=== PATIENT | male | born 1970 | race African-American/Black ===

== ENCOUNTER 2022-06-19 18:44 | Inpatient (IN) | payer OTHER ==
[2022-06-19] MEDS ORDERED: Ondansetron PF 4 MG/2 ML Vial ONE (20:01)
[2022-06-19] MEDS ORDERED: HYDROmorphone 0.5 MG/0.5 ML SYRINGE ONE ×4 (20:01→23:21)
[2022-06-19 20:07] LABS: ALT (SGPT) 16 U/L (8-55); AST (SGOT) 17 U/L (5-34); Albumin 3.6 g/dL (3.5-5.0); Alkaline Phosphatase 103 U/L (40-110); Anion Gap 16 mmol/L (10-20); BUN (Urea Nitrogen) 31 mg/dL (8.4-25.7); Bilirubin, Total 0.3 mg/dL (0.2-1.2); Calc. Creatinine Clearance 0 mL/min (70-130); Calcium 9.3 mg/dL (7.8-10.44); Carbon Dioxide 24 mmol/L (22-29); Chloride 100 mmol/L (98-107); Estimated GFR 23; Globulin 3.8 g/dL (2.4-3.5); Glucose 101 mg/dL (70-105); Potassium 3.9 mmol/L (3.5-5.1); Protein, Total 7.4 g/dL (6.0-8.3); Sodium 136 mmol/L (136-145)
[2022-06-19 20:12] LABS: #Basophils 0.1 10x3/uL (0.0-0.2); #Eosinphils 0.1 10x3/uL (0.0-0.5); #Monocytes 0.9 10x3/uL (0.0-1.1); #Neutrophils 8.7 10x3/uL (1.5-8.4); %Basophils 0.5 % (0.0-2.0); %Eosinophils 1.1 % (0.0-6.0); %Monocytes 7.6 % (0.0-10.0); %Neutrophils 76.4 % (40.0-75.0); Hemoglobin 7.9 g/dL (13.5-17.5); Mean Corpuscular HGB CONC 32.8 g/dL (32.0-36.0); Mean Corpuscular Volume 94.5 fl (81.2-95.1); Platelet Count 233 10x3/uL (150-450); RBC Distribution Width 15.8 % (11.5-14.5); Red Blood Cell (RBC) Count 2.55 10x6/uL (4.32-5.72); White Blood Cell (WBC) Count 11.4 10x3/uL (3.5-10.5)
[2022-06-19 20:15] LABS: Bilirubin Neg (Negative); Blood, Urine 150 (Negative); Clarity Clear (Clear); Glucose, Urine (Dipstick) Normal (Negative); Ketone, Urine Negative (Negative); Leukocyte 500 (Negative); Nitrite Negative (Negative); Protein, Urine (Dipstick) 30 mg/dl (Neg-Trace); Specific Gravity, Urine 1.015 (1.005-1.030); Urobilinogen Normal mg/dL (Less than 2)
[2022-06-19 20:25] LABS: Bacteria/HPF 1+ HPF (None Seen); Squamous Epithelial 0-3 HPF (0-3); Yeast-Budding 1+ HPF (None Seen)
[2022-06-19 20:27] LABS: Yeast-Hyphae 1+ HPF (None Seen)
[2022-06-19] MEDS ORDERED: Fentanyl 100 MCG/2 ML VIAL ONE (21:56)
[2022-06-20] MEDS ORDERED: HYDROmorphone 0.5 MG/0.5 ML SYRINGE ONE (00:05)
[2022-06-20] MEDS ORDERED: cefTRIAXone (ROCEPHIN) 2 GM VIAL ONE (00:56)
[2022-06-20] MEDS ORDERED: Acetaminophen 325 MG TAB PO PRN (03:26)
[2022-06-20] MEDS: Lactated Ringer's 1,000 ML IV SCH ×2 (03:49→14:39)
[2022-06-20] MEDS ORDERED: Morphine 2 MG/ML VIAL SLOW IVP PRN (04:21)
[2022-06-20 07:15] VITALS: BMI 35.4
[2022-06-20 08:13] LABS: #Eosinphils 0.2 10x3/uL (0.0-0.5); #Monocytes 0.9 10x3/uL (0.0-1.1); #Neutrophils 7.9 10x3/uL (1.5-8.4); %Basophils 0.4 % (0.0-2.0); %Eosinophils 1.6 % (0.0-6.0); %Lymphocytes 13.5 % (18.0-47.0); %Monocytes 8.4 % (0.0-10.0); %Neutrophils 75.5 % (40.0-75.0); Hemoglobin 8.1 g/dL (13.5-17.5); Mean Corpuscular HGB CONC 31.5 g/dL (32.0-36.0); Mean Corpuscular Hemoglobin 30.3 pg (27.0-33.0); Mean Corpuscular Volume 96.3 fl (81.2-95.1); Mean Platelet Volume 9.7 fl (7.4-10.4); Platelet Count 252 10x3/uL (150-450); RBC Distribution Width 15.8 % (11.5-14.5); Red Blood Cell (RBC) Count 2.67 10x6/uL (4.32-5.72); White Blood Cell (WBC) Count 10.4 10x3/uL (3.5-10.5)
[2022-06-20] MEDS: METHadone HCl 10 MG TAB PO SCH ×3 (08:37→23:12)
[2022-06-20 08:51] LABS: Anion Gap 13 mmol/L (10-20); BUN (Urea Nitrogen) 31 mg/dL (8.4-25.7); Calc. Creatinine Clearance 41 mL/min (70-130); Calcium 9.5 mg/dL (7.8-10.44); Carbon Dioxide 29 mmol/L (22-29); Chloride 102 mmol/L (98-107); Estimated GFR 21; Glucose 99 mg/dL (70-105); Magnesium 2.3 mg/dL (1.6-2.6); Potassium 4.4 mmol/L (3.5-5.1); Sodium 140 mmol/L (136-145)
[2022-06-20] MEDS ORDERED: Escitalopram Oxalate 10 mg Tablet PO SCH (09:00)
[2022-06-20] MEDS ORDERED: HYDROmorphone 2 MG TAB ONE (14:34)
[2022-06-20] MEDS: HYDROmorphone 2 MG TAB PO PRN ×3 (14:36→20:18)
[2022-06-20] MEDS: Escitalopram Oxalate 10 mg Tablet PO SCH (20:18)
[2022-06-20] MEDS ORDERED: Sodium Chloride 0.9% 100 ML ONE (23:53)
[2022-06-21] MEDS ORDERED: cefTRIAXone\\ROCEPHIN 2 GM in Sodium Chloride 0.9% 100 ML IVPB SCH (01:00)
[2022-06-21] MEDS: Lactated Ringer's 1,000 ML IV SCH ×3 (01:03→20:17)
[2022-06-21] MEDS: HYDROmorphone 2 MG TAB PO PRN ×6 (02:42→20:45)
[2022-06-21 04:12] LABS: #Eosinphils 0.2 10x3/uL (0.0-0.5); #Monocytes 0.8 10x3/uL (0.0-1.1); #Neutrophils 7.9 10x3/uL (1.5-8.4); %Basophils 0.3 % (0.0-2.0); %Eosinophils 1.5 % (0.0-6.0); %Lymphocytes 14.8 % (18.0-47.0); %Monocytes 7.4 % (0.0-10.0); %Neutrophils 75.5 % (40.0-75.0); Hemoglobin 8.5 g/dL (13.5-17.5); Mean Corpuscular HGB CONC 30.9 g/dL (32.0-36.0); Mean Corpuscular Hemoglobin 30.2 pg (27.0-33.0); Mean Corpuscular Volume 97.9 fl (81.2-95.1); Mean Platelet Volume 10.1 fl (7.4-10.4); Platelet Count 235 10x3/uL (150-450); RBC Distribution Width 15.7 % (11.5-14.5); Red Blood Cell (RBC) Count 2.81 10x6/uL (4.32-5.72); White Blood Cell (WBC) Count 10.5 10x3/uL (3.5-10.5)
[2022-06-21 04:18] LABS: Anion Gap 16 mmol/L (10-20); BUN (Urea Nitrogen) 28 mg/dL (8.4-25.7); Calc. Creatinine Clearance 42 mL/min (70-130); Calcium 9.5 mg/dL (7.8-10.44); Carbon Dioxide 24 mmol/L (22-29); Chloride 102 mmol/L (98-107); Estimated GFR 22; Glucose 77 mg/dL (70-105); Sodium 138 mmol/L (136-145)
[2022-06-21] MEDS: Morphine 4 MG/ML VIAL SLOW IVP PRN (05:24)
[2022-06-21] MEDS: METHadone HCl 10 MG TAB PO SCH ×3 (08:19→23:41)
[2022-06-21] MEDS: Escitalopram Oxalate 20 mg Tablet PO SCH (08:20)
[2022-06-21] MEDS ORDERED: VANCOMYCIN 1.75 GM/350 ML BAG 1.75 GM in Premix Bag 1 BAG IVPB SCH (09:00)
[2022-06-21] MEDS: Cefepime 1 GM in Sodium Chloride 0.9% 100 ML IVPB SCH ×2 (09:13→20:17)
[2022-06-21] MEDS: Escitalopram Oxalate 10 mg Tablet PO SCH (20:18)
[2022-06-22] MEDS: Morphine 4 MG/ML VIAL SLOW IVP PRN ×3 (02:11→12:22)
[2022-06-22 03:59] LABS: #Basophils 0.1 10x3/uL (0.0-0.2); #Eosinphils 0.2 10x3/uL (0.0-0.5); #Monocytes 0.7 10x3/uL (0.0-1.1); #Neutrophils 8.5 10x3/uL (1.5-8.4); %Basophils 0.5 % (0.0-2.0); %Eosinophils 1.8 % (0.0-6.0); %Lymphocytes 12.8 % (18.0-47.0); %Monocytes 6.2 % (0.0-10.0); %Neutrophils 78.2 % (40.0-75.0); Hemoglobin 8.4 g/dL (13.5-17.5); Mean Corpuscular HGB CONC 31.6 g/dL (32.0-36.0); Mean Corpuscular Hemoglobin 30.8 pg (27.0-33.0); Mean Corpuscular Volume 97.4 fl (81.2-95.1); Mean Platelet Volume 9.5 fl (7.4-10.4); Platelet Count 239 10x3/uL (150-450); RBC Distribution Width 15.8 % (11.5-14.5); Red Blood Cell (RBC) Count 2.73 10x6/uL (4.32-5.72); White Blood Cell (WBC) Count 10.9 10x3/uL (3.5-10.5)
[2022-06-22 04:21] LABS: ALT (SGPT) 14 U/L (8-55); AST (SGOT) 15 U/L (5-34); Albumin 3.7 g/dL (3.5-5.0); Alkaline Phosphatase 114 U/L (40-110); Anion Gap 17 mmol/L (10-20); BUN (Urea Nitrogen) 30 mg/dL (8.4-25.7); Bilirubin, Total 0.3 mg/dL (0.2-1.2); Calc. Creatinine Clearance 43 mL/min (70-130); Calcium 9.5 mg/dL (7.8-10.44); Carbon Dioxide 24 mmol/L (22-29); Chloride 103 mmol/L (98-107); Estimated GFR 23; Globulin 4.1 g/dL (2.4-3.5); Glucose 97 mg/dL (70-105); Protein, Total 7.8 g/dL (6.0-8.3); Sodium 140 mmol/L (136-145)
[2022-06-22] MEDS: Lactated Ringer's 1,000 ML IV SCH (07:45)
[2022-06-22] MEDS: Cefepime 1 GM in Sodium Chloride 0.9% 100 ML IVPB SCH ×2 (08:22→22:23)
[2022-06-22] MEDS: Escitalopram Oxalate 20 mg Tablet PO SCH (08:25)
[2022-06-22] MEDS: METHadone HCl 10 MG TAB PO SCH ×2 (08:25→16:42)
[2022-06-22] MEDS ORDERED: Senokot S 8.6-50 MG TAB PO SCH (11:30)
[2022-06-22] MEDS ORDERED: Bisacodyl 5 MG TAB PO SCH (13:00)
[2022-06-22] MEDS ORDERED: Gabapentin 300 MG CAP PO SCH (13:00)
[2022-06-22] MEDS: HYDROmorphone 2 MG TAB PO PRN (13:16)
[2022-06-22] MEDS ORDERED: VANCOMYCIN 1.25 GM/250 ML BAG 1.25 GM in Premix Bag 1 BAG IVPB SCH (21:00)
[2022-06-22] MEDS: Escitalopram Oxalate 10 mg Tablet PO SCH (22:27)
[2022-06-22] MEDS: Gabapentin 300 MG CAP PO SCH (22:28)
[2022-06-22] MEDS: Senokot S 8.6-50 MG TAB PO SCH (22:28)
[2022-06-22] MEDS: Mirtazapine 15 MG Soltab PO SCH (22:28)
[2022-06-23] MEDS: METHadone HCl 10 MG TAB PO SCH ×3 (00:18→15:30)
[2022-06-23 04:17] LABS: #Eosinphils 0.2 10x3/uL (0.0-0.5); #Monocytes 0.7 10x3/uL (0.0-1.1); #Neutrophils 6.8 10x3/uL (1.5-8.4); %Basophils 0.4 % (0.0-2.0); %Eosinophils 1.8 % (0.0-6.0); %Monocytes 7.7 % (0.0-10.0); %Neutrophils 73.9 % (40.0-75.0); Hemoglobin 7.4 g/dL (13.5-17.5); Mean Corpuscular Hemoglobin 31.1 pg (27.0-33.0); Mean Corpuscular Volume 97.1 fl (81.2-95.1); Mean Platelet Volume 9.6 fl (7.4-10.4); Platelet Count 196 10x3/uL (150-450); RBC Distribution Width 15.7 % (11.5-14.5); Red Blood Cell (RBC) Count 2.38 10x6/uL (4.32-5.72); White Blood Cell (WBC) Count 9.3 10x3/uL (3.5-10.5)
[2022-06-23 04:33] LABS: ALT (SGPT) 10 U/L (8-55); AST (SGOT) 13 U/L (5-34); Albumin 3.4 g/dL (3.5-5.0); Alkaline Phosphatase 93 U/L (40-110); Anion Gap 16 mmol/L (10-20); BUN (Urea Nitrogen) 30 mg/dL (8.4-25.7); Bilirubin, Total 0.2 mg/dL (0.2-1.2); Calc. Creatinine Clearance 43 mL/min (70-130); Calcium 9.1 mg/dL (7.8-10.44); Carbon Dioxide 23 mmol/L (22-29); Chloride 104 mmol/L (98-107); Estimated GFR 23; Globulin 3.5 g/dL (2.4-3.5); Glucose 77 mg/dL (70-105); Potassium 3.9 mmol/L (3.5-5.1); Protein, Total 6.9 g/dL (6.0-8.3); Sodium 139 mmol/L (136-145)
[2022-06-23] MEDS: HYDROmorphone 2 MG TAB PO PRN ×3 (05:43→22:06)
[2022-06-23] MEDS: Cefepime 1 GM in Sodium Chloride 0.9% 100 ML IVPB SCH ×2 (08:17→21:54)
[2022-06-23] MEDS: Gabapentin 300 MG CAP PO SCH ×2 (08:32→22:05)
[2022-06-23] MEDS: Escitalopram Oxalate 20 mg Tablet PO SCH (08:33)
[2022-06-23] MEDS: Senokot S 8.6-50 MG TAB PO SCH ×2 (08:34→22:05)
[2022-06-23] MEDS: Polyethylene Glycol 3350 17 GM Packet PO SCH (08:36)
[2022-06-23] MEDS ORDERED: Escitalopram Oxalate 20 mg Tablet PO SCH (09:00)
[2022-06-23 10:10] LABS: Iron 51 ug/dL (65-175); Iron Binding Capacity, Total 249 mcg/dL (261-462)
[2022-06-23] MEDS ORDERED: Bisacodyl 5 MG TAB PO PRN (15:35)
[2022-06-23] MEDS ORDERED: Bisacodyl 5 MG TAB PO SCH (15:45)
[2022-06-23] MEDS: Morphine 4 MG/ML VIAL SLOW IVP PRN (16:36)
[2022-06-23] MEDS: Mirtazapine 15 MG Soltab PO SCH (22:05)
[2022-06-23] MEDS: Escitalopram Oxalate 10 mg Tablet PO SCH (22:05)
[2022-06-24] MEDS: METHadone HCl 10 MG TAB PO SCH ×3 (00:55→17:58)
[2022-06-24 05:21] LABS: #Basophils 0.1 10x3/uL (0.0-0.2); #Eosinphils 0.2 10x3/uL (0.0-0.5); #Monocytes 0.8 10x3/uL (0.0-1.1); #Neutrophils 8.2 10x3/uL (1.5-8.4); %Basophils 0.5 % (0.0-2.0); %Eosinophils 1.7 % (0.0-6.0); %Lymphocytes 14.6 % (18.0-47.0); %Monocytes 7.2 % (0.0-10.0); %Neutrophils 75.4 % (40.0-75.0); Hemoglobin 7.9 g/dL (13.5-17.5); Mean Corpuscular HGB CONC 31.3 g/dL (32.0-36.0); Mean Corpuscular Hemoglobin 30.4 pg (27.0-33.0); Mean Corpuscular Volume 96.9 fl (81.2-95.1); Mean Platelet Volume 9.7 fl (7.4-10.4); Platelet Count 238 10x3/uL (150-450); RBC Distribution Width 15.9 % (11.5-14.5); White Blood Cell (WBC) Count 10.8 10x3/uL (3.5-10.5)
[2022-06-24] MEDS: HYDROmorphone 2 MG TAB PO PRN (05:23)
[2022-06-24 05:36] LABS: ALT (SGPT) 11 U/L (8-55); AST (SGOT) 14 U/L (5-34); Albumin 3.8 g/dL (3.5-5.0); Alkaline Phosphatase 96 U/L (40-110); Anion Gap 16 mmol/L (10-20); BUN (Urea Nitrogen) 33 mg/dL (8.4-25.7); Bilirubin, Total 0.2 mg/dL (0.2-1.2); Calc. Creatinine Clearance 40 mL/min (70-130); Calcium 9.8 mg/dL (7.8-10.44); Carbon Dioxide 23 mmol/L (22-29); Chloride 105 mmol/L (98-107); Estimated GFR 21; Globulin 4.1 g/dL (2.4-3.5); Glucose 88 mg/dL (70-105); Potassium 4.2 mmol/L (3.5-5.1); Protein, Total 7.9 g/dL (6.0-8.3); Sodium 140 mmol/L (136-145)
[2022-06-24] MEDS: Gabapentin 300 MG CAP PO SCH ×2 (09:47→21:50)
[2022-06-24] MEDS: Senokot S 8.6-50 MG TAB PO SCH ×2 (09:50→21:50)
[2022-06-24] MEDS: Cefepime 1 GM in Sodium Chloride 0.9% 100 ML IVPB SCH ×2 (09:52→21:50)
[2022-06-24] MEDS: Escitalopram Oxalate 20 mg Tablet PO SCH (09:52)
[2022-06-24] MEDS: Polyethylene Glycol 3350 17 GM Packet PO SCH (09:52)
[2022-06-24] MEDS ORDERED: Fleet Saline Enema 133 ML BOT PR SCH (12:45)
[2022-06-24] MEDS ORDERED: Furosemide 40 MG/4 ML VIAL SLOW IVP SCH (14:00)
[2022-06-24] MEDS ORDERED: GoLYTELY 4,000 ml Bottle PO SCH (15:15)
[2022-06-24] MEDS: Escitalopram Oxalate 10 mg Tablet PO SCH (21:50)
[2022-06-24] MEDS: Mirtazapine 15 MG Soltab PO SCH (21:50)
[2022-06-25] MEDS: METHadone HCl 10 MG TAB PO SCH ×3 (01:37→18:53)
[2022-06-25 06:11] LABS: #Basophils 0.1 10x3/uL (0.0-0.2); #Eosinphils 0.1 10x3/uL (0.0-0.5); #Monocytes 0.8 10x3/uL (0.0-1.1); #Neutrophils 12.5 10x3/uL (1.5-8.4); %Basophils 0.3 % (0.0-2.0); %Eosinophils 0.9 % (0.0-6.0); %Lymphocytes 6.7 % (18.0-47.0); %Monocytes 5.5 % (0.0-10.0); %Neutrophils 86.2 % (40.0-75.0); Hemoglobin 8.1 g/dL (13.5-17.5); Mean Corpuscular HGB CONC 31.8 g/dL (32.0-36.0); Mean Corpuscular Volume 94.4 fl (81.2-95.1); Mean Platelet Volume 9.7 fl (7.4-10.4); Platelet Count 248 10x3/uL (150-450); RBC Distribution Width 15.6 % (11.5-14.5); White Blood Cell (WBC) Count 14.5 10x3/uL (3.5-10.5)
[2022-06-25 06:19] LABS: ALT (SGPT) 13 U/L (8-55); AST (SGOT) 17 U/L (5-34); Albumin 3.6 g/dL (3.5-5.0); Alkaline Phosphatase 98 U/L (40-110); Anion Gap 19 mmol/L (10-20); BUN (Urea Nitrogen) 36 mg/dL (8.4-25.7); Bilirubin, Total 0.4 mg/dL (0.2-1.2); Calc. Creatinine Clearance 37 mL/min (70-130); Calcium 9.7 mg/dL (7.8-10.44); Carbon Dioxide 21 mmol/L (22-29); Chloride 104 mmol/L (98-107); Estimated GFR 19; Globulin 3.9 g/dL (2.4-3.5); Glucose 91 mg/dL (70-105); Potassium 3.4 mmol/L (3.5-5.1); Protein, Total 7.5 g/dL (6.0-8.3); Sodium 141 mmol/L (136-145)
[2022-06-25] MEDS: Polyethylene Glycol 3350 17 GM Packet PO SCH ×2 (09:08→20:46)
[2022-06-25] MEDS: Cefepime 1 GM in Sodium Chloride 0.9% 100 ML IVPB SCH ×2 (09:09→20:41)
[2022-06-25] MEDS: Escitalopram Oxalate 20 mg Tablet PO SCH (09:09)
[2022-06-25] MEDS: Senokot S 8.6-50 MG TAB PO SCH ×2 (09:10→20:41)
[2022-06-25] MEDS: Gabapentin 300 MG CAP PO SCH ×2 (09:10→20:41)
[2022-06-25] MEDS ORDERED: Potassium Chloride 20 MEQ TAB PO SCH (13:30)
[2022-06-25] MEDS ORDERED: Fluconazole 100 MG TAB PO SCH (14:00)
[2022-06-25] MEDS ORDERED: clonazePAM 1 MG TAB PO SCH (14:00)
[2022-06-25 16:00] LABS: Vancomycin, Random 16.4 ug/mL (See Comment)
[2022-06-25] MEDS: Escitalopram Oxalate 10 mg Tablet PO SCH (20:42)
[2022-06-25] MEDS: HYDROmorphone 2 MG TAB PO PRN (20:43)
[2022-06-25] MEDS: Mirtazapine 15 MG Soltab PO SCH (20:43)
[2022-06-25] MEDS: clonazePAM 1 MG TAB PO PRN (20:43)
[2022-06-25] MEDS: Sodium Bicarbonate Tab 325 MG TAB PO SCH (20:46)
[2022-06-26] MEDS: METHadone HCl 10 MG TAB PO SCH ×5 (00:14→22:39)
[2022-06-26] MEDS: HYDROmorphone 2 MG TAB PO PRN ×4 (05:27→22:19)
[2022-06-26 06:29] LABS: Hemoglobin 7.9 g/dL (13.5-17.5); Mean Corpuscular HGB CONC 31.6 g/dL (32.0-36.0); Mean Corpuscular Hemoglobin 30.4 pg (27.0-33.0); Mean Corpuscular Volume 96.2 fl (81.2-95.1); Mean Platelet Volume 9.6 fl (7.4-10.4); Platelet Count 253 10x3/uL (150-450); RBC Distribution Width 15.9 % (11.5-14.5); White Blood Cell (WBC) Count 11.9 10x3/uL (3.5-10.5)
[2022-06-26 06:44] LABS: Albumin 3.5 g/dL (3.5-5.0); Anion Gap 15 mmol/L (10-20); BUN (Urea Nitrogen) 38 mg/dL (8.4-25.7); BUN/Creatinine Ratio 10.56; Calc. Creatinine Clearance 38 mL/min (70-130); Calcium 9.6 mg/dL (7.8-10.44); Carbon Dioxide 23 mmol/L (22-29); Chloride 105 mmol/L (98-107); Estimated GFR 19; Glucose 91 mg/dL (70-105); Phosphorus 3.7 mg/dL (2.3-4.7); Potassium 3.3 mmol/L (3.5-5.1); Sodium 140 mmol/L (136-145)
[2022-06-26] MEDS ORDERED: Lactated Ringer's 1,000 ML IV SCH (07:00)
[2022-06-26 07:30] LABS: Magnesium 2.2 mg/dL (1.6-2.6)
[2022-06-26] MEDS: Polyethylene Glycol 3350 17 GM Packet PO SCH ×4 (07:41→22:39)
[2022-06-26] MEDS ORDERED: Potassium Chloride 20 MEQ TAB PO SCH ×2 (08:00→08:30)
[2022-06-26] MEDS ORDERED: Fluconazole 100 MG TAB PO SCH (09:00)
[2022-06-26] MEDS: Senokot S 8.6-50 MG TAB PO SCH ×2 (09:34→21:51)
[2022-06-26] MEDS: Fluconazole 100 MG TAB PO SCH (09:35)
[2022-06-26] MEDS: Gabapentin 300 MG CAP PO SCH ×2 (09:35→21:50)
[2022-06-26] MEDS: Sodium Bicarbonate Tab 325 MG TAB PO SCH ×2 (09:35→21:51)
[2022-06-26] MEDS: Escitalopram Oxalate 20 mg Tablet PO SCH (09:35)
[2022-06-26] MEDS: Cefepime 1 GM in Sodium Chloride 0.9% 100 ML IVPB SCH ×2 (09:36→10:11)
[2022-06-26] MEDS: clonazePAM 1 MG TAB PO PRN (09:46)
[2022-06-26] MEDS ORDERED: EPOETIN ALFA-EPBX (ESRD) 4,000 UNIT/ML VIAL SC SCH (10:00)
[2022-06-26] MEDS ORDERED: Potassium Bicarbonate/Cit Ac 20 MEQ TAB PO SCH (11:00)
[2022-06-26] MEDS: cefTRIAXone\\ROCEPHIN 1 GM in Sodium Chloride 0.9% 100 ML IVPB SCH (13:57)
[2022-06-26 14:28] LABS: Protein, Urine Random Quant 45 mg/dL (1-14); Sodium, Urine 58 mmol/L (Not Available); Urea Nitrogen, Random Urine 290 mg/dl
[2022-06-26] MEDS ORDERED: Iron, Sodium Ferric Gluconate 250 MG in Sodium Chloride 0.9% 250 ML 250 ML IVPB SCH (15:00)
[2022-06-26] MEDS: Escitalopram Oxalate 10 mg Tablet PO SCH (21:50)
[2022-06-26] MEDS: Mirtazapine 15 MG Soltab PO SCH (21:51)
[2022-06-27] MEDS ORDERED: Morphine 4 MG/ML VIAL SLOW IVP SCH (01:45)
[2022-06-27] MEDS: HYDROmorphone 2 MG TAB PO PRN ×3 (05:50→15:49)
[2022-06-27 06:36] LABS: #Basophils 0.1 10x3/uL (0.0-0.2); #Eosinphils 0.2 10x3/uL (0.0-0.5); #Neutrophils 10.4 10x3/uL (1.5-8.4); %Basophils 0.4 % (0.0-2.0); %Eosinophils 1.4 % (0.0-6.0); %Lymphocytes 12.2 % (18.0-47.0); %Monocytes 7.6 % (0.0-10.0); %Neutrophils 77.8 % (40.0-75.0); Hemoglobin 8.3 g/dL (13.5-17.5); Mean Corpuscular HGB CONC 31.9 g/dL (32.0-36.0); Mean Corpuscular Hemoglobin 30.9 pg (27.0-33.0); Mean Corpuscular Volume 96.7 fl (81.2-95.1); Mean Platelet Volume 9.5 fl (7.4-10.4); Platelet Count 261 10x3/uL (150-450); RBC Distribution Width 15.9 % (11.5-14.5); Red Blood Cell (RBC) Count 2.69 10x6/uL (4.32-5.72); White Blood Cell (WBC) Count 13.4 10x3/uL (3.5-10.5)
[2022-06-27 06:55] LABS: Albumin 3.6 g/dL (3.5-5.0); Anion Gap 16 mmol/L (10-20); BUN (Urea Nitrogen) 38 mg/dL (8.4-25.7); BUN/Creatinine Ratio 11.11; Calc. Creatinine Clearance 40 mL/min (70-130); Calcium 9.5 mg/dL (7.8-10.44); Carbon Dioxide 24 mmol/L (22-29); Chloride 102 mmol/L (98-107); Estimated GFR 21; Glucose 96 mg/dL (70-105); Phosphorus 2.7 mg/dL (2.3-4.7); Potassium 3.9 mmol/L (3.5-5.1); Sodium 138 mmol/L (136-145)
[2022-06-27] MEDS: Fluconazole 100 MG TAB PO SCH (09:47)
[2022-06-27] MEDS: METHadone HCl 10 MG TAB PO SCH ×2 (09:48→21:56)
[2022-06-27] MEDS: Senokot S 8.6-50 MG TAB PO SCH ×2 (09:49→21:55)
[2022-06-27] MEDS: Escitalopram Oxalate 20 mg Tablet PO SCH (09:49)
[2022-06-27] MEDS: Sodium Bicarbonate Tab 325 MG TAB PO SCH ×2 (09:49→21:55)
[2022-06-27] MEDS: Gabapentin 300 MG CAP PO SCH ×2 (09:49→22:11)
[2022-06-27] MEDS: cefTRIAXone\\ROCEPHIN 1 GM in Sodium Chloride 0.9% 100 ML IVPB SCH (09:52)
[2022-06-27] MEDS: clonazePAM 1 MG TAB PO PRN (14:59)
[2022-06-27] MEDS: Mirtazapine 15 MG Soltab PO SCH (21:55)
[2022-06-27] MEDS: Escitalopram Oxalate 10 mg Tablet PO SCH (21:55)
[2022-06-28] MEDS: HYDROmorphone 2 MG TAB PO PRN ×3 (03:40→11:21)
[2022-06-28 04:45] LABS: #Basophils 0.1 10x3/uL (0.0-0.2); #Eosinphils 0.2 10x3/uL (0.0-0.5); #Neutrophils 8.2 10x3/uL (1.5-8.4); %Basophils 0.7 % (0.0-2.0); %Eosinophils 1.4 % (0.0-6.0); %Lymphocytes 10.5 % (18.0-47.0); %Monocytes 9.3 % (0.0-10.0); %Neutrophils 77.7 % (40.0-75.0); Hemoglobin 7.4 g/dL (13.5-17.5); Mean Corpuscular HGB CONC 30.5 g/dL (32.0-36.0); Mean Corpuscular Hemoglobin 30.3 pg (27.0-33.0); Mean Corpuscular Volume 99.6 fl (81.2-95.1); Mean Platelet Volume 9.6 fl (7.4-10.4); Platelet Count 233 10x3/uL (150-450); Red Blood Cell (RBC) Count 2.44 10x6/uL (4.32-5.72); White Blood Cell (WBC) Count 10.5 10x3/uL (3.5-10.5)
[2022-06-28 05:04] LABS: Albumin 3.3 g/dL (3.5-5.0); Anion Gap 17 mmol/L (10-20); BUN (Urea Nitrogen) 36 mg/dL (8.4-25.7); BUN/Creatinine Ratio 10.71; Calc. Creatinine Clearance 40 mL/min (70-130); Calcium 9.3 mg/dL (7.8-10.44); Carbon Dioxide 23 mmol/L (22-29); Chloride 104 mmol/L (98-107); Estimated GFR 21; Glucose 111 mg/dL (70-105); Phosphorus 3.1 mg/dL (2.3-4.7); Sodium 140 mmol/L (136-145)
[2022-06-28] MEDS: Sodium Bicarbonate Tab 325 MG TAB PO SCH (08:55)
[2022-06-28] MEDS: Escitalopram Oxalate 20 mg Tablet PO SCH (08:55)
[2022-06-28] MEDS: Fluconazole 100 MG TAB PO SCH (08:55)
[2022-06-28] MEDS: Gabapentin 300 MG CAP PO SCH (08:56)
[2022-06-28] MEDS: METHadone HCl 10 MG TAB PO SCH (08:56)
[2022-06-28] MEDS: Senokot S 8.6-50 MG TAB PO SCH (08:57)
[2022-06-28] MEDS: cefTRIAXone\\ROCEPHIN 1 GM in Sodium Chloride 0.9% 100 ML IVPB SCH (11:21)
[2022-06-28 12:13] VITALS: TEMP 98.8
[2022-06-28 12:18] VITALS: BP 160/89
[2022-06-29] MEDS ORDERED: Ferrous Sulfate 325 MG TAB PO SCH (08:00)
== END 2022-06-28 15:02 | disposition home or self-care (01) | DRG 728 ==
LOC: CSHERS 18:44 → CSHERHOLD 06-20 02:01 → CSHIMCU 06-20 16:25 → CSHTELE 06-22 15:10
PROVIDERS: ADMIT Family Medicine; ATTEND Internal Medicine
DX: N45.1 Epididymitis (principal); B37.49 Other urogenital candidiasis; C78.6 Secondary malignant neoplasm of retroperitoneum and peritoneum; C18.9 Malignant neoplasm of colon, unspecified; C78.7 Secondary malignant neoplasm of liver and intrahepatic bile duct; N17.9 Acute kidney failure, unspecified; N18.4 Chronic kidney disease, stage 4 (severe); E87.20 Acidosis, unspecified; K21.9 Gastro-esophageal reflux disease without esophagitis; F32.A Depression, unspecified; N18.9 Chronic kidney disease, unspecified; D63.1 Anemia in chronic kidney disease; N30.80 Other cystitis without hematuria; K59.03 Drug induced constipation; T40.2X5A Adverse effect of other opioids, initial encounter; E87.6 Hypokalemia; Z90.49 Acquired absence of other specified parts of digestive tract; Z98.890 Other specified postprocedural states; Z82.61 Family history of arthritis; Z80.1 Family history of malignant neoplasm of trachea, bronchus and lung; Z80.0 Family history of malignant neoplasm of digestive organs; Z88.6 Allergy status to analgesic agent; Z79.899 Other long term (current) drug therapy; Z93.6 Other artificial openings of urinary tract status
CPT/HCPCS: 36415; 36416; 70450; 72192; 74018; 74176; 76705; 76870; 80048; 80053; 80069; 80202; 81003; 81015; 82140; 82550; 82570; 82728; 83540; 83550; 83605; 83735; 84156; 84300; 84540; 85025; 85027; 87040; 87086; 93005; 93010; 93976; 95816; 95819; 95957; 96365; 96375; 96376; J0692; J0696; J1170; J1650; J1940; J2270; J2272; J2405; J2916; J3010; J3370; J3490; J7050; J7120; Q5105